=== PATIENT | male | born 1985 | race Caucasian/White ===

== ENCOUNTER 2017-06-20 18:25 | Emergency (ER) | payer OTHER ==
[~2017-06-20] VITALS: Ht 188 cm; Wt 108.9 kg
[~2017-06-20 18:25] MED LIST: FLONASE2 SPRAY NS; HYDROCODON-ACE1 EA10 PO; IBUPROFEN200 M1 PO; IBUPROFEN600 MG PO; IBUPROFEN800 MG PO; KEFLEX500 MG PO; NAPROSYN500 MG PO; NAPROXEN500 MG PO; NORCO 5-325 TA1 EACH PO; OMEPRAZOLE20 MG PO; OXYCODONE HCL5 MG PO; PERCOCET 5-3251 EACH PO; PREDNISONE20 MG PO; PROTONIX40 MG PO; TRAMADOL HCL50 MG PO; VICODIN 5-5001 EACH PO; ZYRTEC10 MG PO
[2017-06-20] MEDS ORDERED: OMEPRAZOLE20 MG PO (18:45)
[2017-06-20] MEDS ORDERED: PROZAC20 MG PO (18:45)
[2017-06-20] MEDS ORDERED: ACYCLOVIR800 MG PO (19:28)
== END 2017-06-20 20:03 | disposition home or self-care (01) ==
LOC: ED 18:25
DX: B02.9 Zoster without complications (principal); K21.9 Gastro-esophageal reflux disease without esophagitis; F17.200 Nicotine dependence, unspecified, uncomplicated; Z79.899 Other long term (current) drug therapy
CPT/HCPCS: 99283